=== PATIENT | male | born 2005 | race African-American/Black ===

== ENCOUNTER 2025-01-24 06:38 | Emergency (ER) | payer OTHER ==
[2025-01-24 06:47] VITALS: BP 120/64; PULSE 62; RESP 18; TEMP 97.3; BMI 35.6
[2025-01-24] MEDS ORDERED: FAMOTIDINE 20 MG TABLET ONE (07:55)
[2025-01-24] MEDS ORDERED: ACETAMINOPHEN 325 MG TABLET (FP) ONE (07:56)
[2025-01-24] MEDS ORDERED: MAG HYDROX/AL HYDROX/SIMETH 30 ML UNIT-DOSE CUP ONE (07:57)
[2025-01-24] MEDS: FAMOTIDINE 20 MG TABLET PO ONE (08:01)
[2025-01-24] MEDS: MAG HYDROX/AL HYDROX/SIMETH 30 ML UNIT-DOSE CUP PO ONE (08:01)
[2025-01-24] MEDS: ACETAMINOPHEN 325 MG TABLET (FP) PO ONE (08:01)
== END 2025-01-24 08:32 | disposition home or self-care (01) ==
LOC: JER 06:38
DX: R10.13 Epigastric pain (principal)
CPT/HCPCS: 99283-25